=== PATIENT | female | born 1990 | race Caucasian/White ===

== ENCOUNTER 2021-04-23 04:45 | Emergency (ER) | payer OTHER ==
[~2021-04-23] VITALS: Ht 167.6 cm; Wt 81.8 kg
[2021-04-23] MEDS ORDERED: metoclopramide 5 mg/ml inj IV ONE (05:15)
[2021-04-23] MEDS ORDERED: normal saline 1000ml 1,000 ML IV ONE (05:15)
[2021-04-23] MEDS ORDERED: diphenhydrAMINE 50 mg/ml inj IV ONE (05:15)
[2021-04-23 06:03] VITALS: BP 104/61
[2021-04-23] MEDS ORDERED: METO10TA3 PO (06:11)
== END 2021-04-23 06:35 | disposition home or self-care (01) ==
LOC: ER 04:46
DX: O26.891 Other specified pregnancy related conditions, first trimester (principal); G43.909 Migraine, unspecified, not intractable, without status migrainosus; Z88.1 Allergy status to other antibiotic agents; Z79.899 Other long term (current) drug therapy; Z3A.12 12 weeks gestation of pregnancy
CPT/HCPCS: 96361; 96374; 96375; 99284; J1200; J2765; J7030

== ENCOUNTER 2021-04-24 12:09 | Emergency (ER) | payer MEDICAID, OTHER ==
[~2021-04-24] VITALS: Ht 167.6 cm; Wt 79.0 kg
[~2021-04-24 12:09] MED LIST: METO10TA3 PO
[2021-04-24] MEDS ORDERED: ondansetron 4mg rapidly disintigrating tab PO ONE (14:25)
[2021-04-24] MEDS ORDERED: normal saline 1000ML IV soln IVB ONE ×2 (14:35→20:10)
[2021-04-24 14:42] LABS: BASOPHILS % (AUTO) 0.2 % (0-1); EOSINOPHILS % (AUTO) 0.1 % (0-6); HEMATOCRIT 43.1 % (35.0-45.0); HEMOGLOBIN 14.9 g/dl (12.0-16.0); LYMPHOCYTES # (AUTO) 0.8 X10'3 (1.1-4.8); LYMPHOCYTES % (AUTO) 4.2 % (21-51); MEAN CORPUSCULAR HEMOGLOBIN 31.9 PG (27.0-31.0); MEAN CORPUSCULAR HGB CONC 34.6 g/dL (33.0-36.5); MEAN PLATELET VOLUME 10.1 FL (7.4-10.4); MONOCYTES # (AUTO) 0.7 X10'3 (0-0.9); MONOCYTES % (AUTO) 4.1 % (2-12); NEUTROPHILS # (AUTO) 16.5 X10'3 (1.8-7.7); NEUTROPHILS % (AUTO) 91.4 % (42-75); PLATELET COUNT 145 X10'3 (140-440); RED BLOOD COUNT 4.69 X10'6 (4.20-5.60); RED CELL DISTRIBUTION WIDTH 14.2 % (11.5-14.5)
[2021-04-24 15:02] LABS: ALANINE AMINOTRANSFERASE 22 U/L (12-78); ALBUMIN 3.3 G/DL (3.4-5.0); ALBUMIN/GLOBULIN RATIO 0.8 (1.1-1.5); ALKALINE PHOSPHATASE 66 IU/L (46-116); ANION GAP 10 (8-16); ASPARTATE AMINO TRANSFERASE 14 U/L (10-37); BILIRUBIN,TOTAL 0.3 MG/DL (0.1-1.0); BLOOD UREA NITROGEN 11 MG/DL (7-18); BUN/CREATININE RATIO 16.4 (6.6-38.0); CALCIUM 8.9 MG/DL (8.5-10.1); CHLORIDE 102 MMOL/L (99-107); CREATININE 0.67 MG/DL (0.40-0.90); GLUCOSE 174 MG/DL (70-104); LIPASE 81 U/L (73-393); MAGNESIUM 2.1 MG/DL (1.5-2.4); POTASSIUM 3.5 MMOL/L (3.5-5.1); SODIUM 133 MMOL/L (135-145); TOTAL CARBON DIOXIDE 21.2 MMOL/L (24-32); TOTAL PROTEIN 7.4 G/DL (6.4-8.2); eGFR > 90 ML/MIN
[2021-04-24] MEDS ORDERED: acetaminophen 325mg tablet PO ONE (15:15)
--- NOTE | 2021-04-24 15:40 | NUR ---
Pt is a very difficult IV start. She is confused and weak. She has a healing wound on R side of abd. at the bedside. Pt's [id number] per doppler tech.
[2021-04-24] MEDS ORDERED: metoclopramide 5 mg/ml inj IV ONE (17:05)
[2021-04-24 18:50] LABS: URINE HCG POSITIVE (NEG)
[2021-04-24 18:53] LABS: CLARITY,URINE SLIGHTLY CLOUDY (Clear); COLOR,URINE YELLOW (Yellow); GLUCOSE, URINE NEGATIVE (Neg); KETONES,URINE >=80 mg/dl (Neg); LEUKOCYTE ESTERASE ,URINE NEGATIVE (Neg); NITRITES, URINE NEGATIVE (Neg); OCCULT BLOOD,URINE NEGATIVE (Neg); PH,URINE 6.5 (4.8-8.0); PROTEIN,URINE 100 mg/dl (Neg); UROBILINOGEN,URINE 0.2 E.U/dL (0.2-1.0)
[2021-04-24 19:04] LABS: URINE AMPHETAMINE SCREEN NEGATIVE (Neg); URINE BARBITUATE SCREEN NEGATIVE (Neg); URINE BENZODIAZEPINES SCREEN NEGATIVE (Neg); URINE CANNABINOID SCREEN NEGATIVE (Neg); URINE COCAINE SCREEN NEGATIVE (Neg); URINE METHADONE SCREEN NEGATIVE (Neg); URINE OPIATE SCREEN NEGATIVE (Neg); URINE PHENCYCLIDINE SCREEN NEGATIVE (Neg)
[2021-04-24 19:16] LABS: UA COLLECTION TYPE CLN CATCH MIDSTREAM
[2021-04-24 19:18] LABS: BACTERIA,URINE FEW /HPF (Neg); MUCUS STRANDS MODERATE /LPF (Neg); RBC,URINE 0-2 /HPF (0-2); SQUAMOUS EPITHELIAL CELL,UR MODERATE /LPF (FEW); TRANSITIONAL EPI CELLS,URINE FEW /HPF
[2021-04-24 19:19] LABS: FINE GRANULAR CAST 0-3 /LPF (NEGATIVE)
--- NOTE | 2021-04-24 20:08 | NUR ---
ULTRASOUND PAGED FOR ROOM 10 AT 20:10
--- NOTE | 2021-04-24 21:20 | NUR ---
Pt had a sudden episode of thrashing. Reaching and pulling. "Make it stop." MD notified.
[2021-04-24] MEDS ORDERED: LORazepam 2 mg/ml vial ONE (21:28)
--- NOTE | 2021-04-24 21:33 | NUR ---
Report given to ISIS Esposito in ER at [facility].
--- NOTE | 2021-04-24 21:45 | NUR ---
Pt transported to [facility] ER via EMS.
[2021-04-24 21:48] LABS: PARTIAL THROMBOPLASTIN TIME 27 SECONDS (22-32)
== END 2021-04-24 21:45 | disposition admitted as inpatient to this hospital (09) ==
LOC: ER 12:11
DX: O99.411 Diseases of the circulatory system complicating pregnancy, first trimester (principal); Z20.822 Contact with and (suspected) exposure to COVID-19; I62.9 Nontraumatic intracranial hemorrhage, unspecified; R42 Dizziness and giddiness; Z88.8 Allergy status to other drugs, medicaments and biological substances; Z79.899 Other long term (current) drug therapy; Z3A.13 13 weeks gestation of pregnancy
CPT/HCPCS: 36415; 70450; 76805; 80053; 80305; 81001; 81025; 82948; 83605; 83690; 83735; 84145; 85025; 85610; 85730; 87040; 87088; 87635; 93005; 96361; 96374; 96375; 99285; C9803; J2060; J2765; J7030

== ENCOUNTER 2021-07-10 09:45 | Outpatient (CLI) | payer BC, MEDICAID | END 2021-07-10 23:59 | disposition home or self-care (01) | LOC: RAD 09:45 | PROVIDERS: ATTEND Psychiatry & Neurology Neurology | DX: R94.01 Abnormal electroencephalogram [EEG] (principal); G93.2 Benign intracranial hypertension; Z86.73 Personal history of transient ischemic attack (TIA), and cerebral infarction without residual deficits | CPT/HCPCS: 95816 ==